=== PATIENT | male | born 1960 | race Caucasian/White ===

== ENCOUNTER 2016-09-04 16:52 | Emergency (ER) | payer OTHER ==
[~2016-09-04 16:52] MED LIST: AUGMENTIN875 MG PO; BACTRIM DS TABL1 TA1 PO; BENTYL20 MG DOB; BENTYL20 MG PO; DIFLUCAN PO; FAMOTIDINE PO; KEFLEX PO; PERCOCET 5-3251 TAB PO; TYLENOL #3 PO; VICODIN 5/1 TAB 5/50 PO; ZOFRAN ODT4 MG/UDTAB PO
== END 2016-09-04 18:02 | disposition home or self-care (01) ==
LOC: SED 16:52
DX: L02.416 Cutaneous abscess of left lower limb (principal); Z90.49 Acquired absence of other specified parts of digestive tract; F17.210 Nicotine dependence, cigarettes, uncomplicated
CPT/HCPCS: 10060; 87070; 87205; 99282

== ENCOUNTER 2016-09-06 11:46 | Emergency (ER) | payer OTHER | END 2016-09-06 12:30 | disposition home or self-care (01) | LOC: SED 11:46 | DX: Z48.03 Encounter for change or removal of drains (principal); F17.210 Nicotine dependence, cigarettes, uncomplicated | CPT/HCPCS: 99282 ==